=== PATIENT | female | born 1945 | race Caucasian/White ===

== ENCOUNTER 2021-04-28 15:17 | Inpatient (IN) ==
[2021-04-28] MEDS ORDERED: ceFAZolin 1,000 MG in 0.9 % Sodium Chloride 10 ML IVP ONE (15:38)
[2021-04-28] MEDS ORDERED: 0.9 % Sodium Chloride 500 ML IVC ONE (15:38)
[2021-04-28] MEDS ORDERED: Vancomycin 1,000 MG VIAL IVPB ONE (15:38)
[2021-04-28] MEDS ORDERED: *HR* HYDROmorphone (PF) 1 MG/ML SYRINGE IVP ONE (15:45)
[2021-04-28] MEDS ORDERED: D5% in Water 250 ML ONE (16:45)
[2021-04-28 16:50] LABS: Basophils % 0.7 %; Eosinophils # 0.1 K/mcL (0.0-0.6); Eosinophils % 1.4 %; Hematocrit 36.5 % (35.3-44.9); Hemoglobin 11.8 g/dL (11.5-15.4); Immature Granulocytes % 0.4 % (0-4); Lymphocytes # 1.6 K/mcL (0.6-4.6); Lymphocytes % 29.1 %; Mean Corpuscular HGB Conc 32.3 g/dL (31.6-35.5); Mean Corpuscular Hemoglobin 28.2 pg (28.0-33.3); Mean Corpuscular Volume 87.1 fL (83.0-100.0); Mean Platelet Volume 9.6 fL (9.4-12.4); Monocytes # 0.5 K/mcL (0.0-1.3); Neutrophils # 3.4 K/mcL (1.6-8.9); Platelet Count 389 K/mcL (140-400); Red Blood Count 4.19 M/mcL (3.82-4.97); Red Cell Distribution Width 13.6 % (11.5-14.5); Segmented Neutrophils % 60.4 %; White Blood Count 5.6 K/mcL (4.3-11.1)
[2021-04-28 17:02] LABS: Alanine Aminotransferase 10 Units/L (7-52); Albumin 3.7 g/dL (3.5-5.7); Albumin/Globulin Ratio 0.9 (1.1-2.2); Alkaline Phosphatase 62 Units/L (34-104); Aspartate Amino Transferase 17 Units/L (13-39); BUN/Creatinine Ratio 14 (6-26); Bilirubin,Total 0.4 mg/dL (0.3-1.0); Blood Urea Nitrogen 11 mg/dL (8-23); Calcium 9.6 mg/dL (8.6-10.3); Carbon Dioxide 23 mEq/L (23-29); Chloride 103 mEq/L (98-107); Globulin 4.3 g/dL (2.4-3.5); Glucose 105 mg/dL (70-105); Osmolality,Calculated 280 (280-300); Sodium 135 mEq/L (136-145); eGFR For African Americans > 60 (> 60); eGFR For Non-African Americans > 60 (> 60)
[2021-04-28 17:07] LABS: Bilirubin,Urine Negative (Negative); Blood,Urine Negative (Negative); Clarity,Urine Slightly Cloudy (Clear); Glucose,Urine (UA) Normal (Normal); Ketones,Urine Negative (Negative); Leukocyte Esterase,Urine Negative (Negative); Nitrite,Urine Negative (Negative); PH,Urine 5.5 pH Units (5.0-8.0); Protein,Urine Negative (Neg-Trace); Urobilinogen,Urine Normal (Normal)
[2021-04-28 17:08] LABS: Color,Urine Yellow (Yellow)
[2021-04-28] MEDS ORDERED: Ondansetron ODT 4 MG TAB.RAPDIS SL PRN (19:44)
[2021-04-28] MEDS ORDERED: Acetaminophen 325 MG TABLET PO PRN (19:44)
[2021-04-28] MEDS ORDERED: *HR* HYDROcodone/Acet 5/325 mg TABLET PO PRN (19:44)
[2021-04-28] MEDS ORDERED: Naloxone 0.4 MG/ML INJ IVP PRN (19:44)
[2021-04-28] MEDS ORDERED: RIFAMPIN 300 MG PO SCH (19:44)
[2021-04-28] MEDS ORDERED: *HR* OxyCODONE/APAP 5/325 TABLET PO SCH (20:00)
[2021-04-28] MEDS ORDERED: NON-FORMULARY MEDICATION 1 EACH EACH (Potassium Chloride [Klor-Con 10] 10 MEQ Tablet.Er) PO SCH (21:00)
[2021-04-28] MEDS: Ascorbic Acid 500 MG TABLET PO SCH (21:46)
[2021-04-28] MEDS: Sennosides 8.6 MG TABLET PO SCH (21:47)
[2021-04-28] MEDS: Gabapentin 100 MG CAPSULE PO SCH (21:47)
[2021-04-28] MEDS: *HR* OxyCODONE/APAP 5/325 TABLET PO PRN (21:47)
[2021-04-28] MEDS: Apixaban 5 MG TABLET PO SCH (21:47)
[2021-04-28] MEDS: predniSONE 5 MG TABLET PO SCH (21:49)
[2021-04-28] MEDS: methocarbamoL 500 MG TABLET PO PRN (21:52)
[2021-04-28] MEDS: Ampicillin/Sulbactam 3,000 MG in 0.9 % Sodium Chloride Mini Bag 100 ML IVPB SCH (23:26)
[2021-04-29 04:51] LABS: Basophils % 0.9 %; Eosinophils # 0.2 K/mcL (0.0-0.6); Eosinophils % 3.9 %; Hematocrit 32.6 % (35.3-44.9); Hemoglobin 10.4 g/dL (11.5-15.4); Immature Granulocytes % 0.5 % (0-4); Lymphocytes # 1.8 K/mcL (0.6-4.6); Lymphocytes % 42.2 %; Mean Corpuscular HGB Conc 31.9 g/dL (31.6-35.5); Mean Corpuscular Volume 87.6 fL (83.0-100.0); Mean Platelet Volume 9.5 fL (9.4-12.4); Monocytes # 0.5 K/mcL (0.0-1.3); Neutrophils # 1.8 K/mcL (1.6-8.9); Platelet Count 326 K/mcL (140-400); Red Blood Count 3.72 M/mcL (3.82-4.97); Red Cell Distribution Width 13.8 % (11.5-14.5); Segmented Neutrophils % 41.5 %; White Blood Count 4.4 K/mcL (4.3-11.1)
[2021-04-29 05:04] LABS: BUN/Creatinine Ratio 13 (6-26); Blood Urea Nitrogen 12 mg/dL (8-23); Calcium 8.7 mg/dL (8.6-10.3); Carbon Dioxide 25 mEq/L (23-29); Chloride 105 mEq/L (98-107); Glucose 97 mg/dL (70-105); Osmolality,Calculated 286 (280-300); Sodium 138 mEq/L (136-145); eGFR For African Americans > 60 (> 60); eGFR For Non-African Americans > 60 (> 60)
[2021-04-29] MEDS: Ampicillin/Sulbactam 3,000 MG in 0.9 % Sodium Chloride Mini Bag 100 ML IVPB SCH ×4 (05:20→23:27)
[2021-04-29] MEDS: *HR* OxyCODONE/APAP 5/325 TABLET PO PRN ×3 (06:41→20:47)
[2021-04-29] MEDS ORDERED: Vancomycin 1,500 MG/265 ML IV.SOLN IVPB SCH (09:00)
[2021-04-29] MEDS: methocarbamoL 500 MG TABLET PO PRN (09:22)
[2021-04-29] MEDS: Gabapentin 100 MG CAPSULE PO SCH ×2 (09:22→20:46)
[2021-04-29] MEDS: Multivit/Ca/Min/Fe/FA 1 TAB TABLET PO SCH (09:22)
[2021-04-29] MEDS: Apixaban 5 MG TABLET PO SCH ×2 (09:22→20:47)
[2021-04-29] MEDS: Ascorbic Acid 500 MG TABLET PO SCH ×2 (09:22→20:46)
[2021-04-29] MEDS: Furosemide 40 MG TABLET PO SCH (09:23)
[2021-04-29] MEDS: predniSONE 5 MG TABLET PO SCH (09:23)
[2021-04-29] MEDS ORDERED: Vancomycin 500 MG in 0.9 % Sodium Chloride Mini Bag 100 ML IVPB ONE (10:30)
[2021-04-29] MEDS: Acetaminophen 325 MG TABLET PO PRN (15:12)
[2021-04-29] MEDS: Sennosides 8.6 MG TABLET PO SCH (20:45)
[2021-04-30] MEDS: *HR* OxyCODONE/APAP 5/325 TABLET PO PRN ×4 (00:44→20:02)
[2021-04-30] MEDS: Ampicillin/Sulbactam 3,000 MG in 0.9 % Sodium Chloride Mini Bag 100 ML IVPB SCH ×4 (05:12→23:39)
[2021-04-30 08:20] LABS: Basophils % 0.7 %; Eosinophils # 0.2 K/mcL (0.0-0.6); Hematocrit 33.4 % (35.3-44.9); Immature Granulocytes % 0.2 % (0-4); Lymphocytes # 1.8 K/mcL (0.6-4.6); Lymphocytes % 40.9 %; Mean Corpuscular HGB Conc 32.9 g/dL (31.6-35.5); Mean Corpuscular Hemoglobin 28.7 pg (28.0-33.3); Mean Corpuscular Volume 87.2 fL (83.0-100.0); Mean Platelet Volume 9.1 fL (9.4-12.4); Monocytes # 0.5 K/mcL (0.0-1.3); Monocytes % 11.9 %; Neutrophils # 1.9 K/mcL (1.6-8.9); Platelet Count 313 K/mcL (140-400); Red Blood Count 3.83 M/mcL (3.82-4.97); Red Cell Distribution Width 13.8 % (11.5-14.5); Segmented Neutrophils % 42.3 %; White Blood Count 4.5 K/mcL (4.3-11.1)
[2021-04-30] MEDS: predniSONE 5 MG TABLET PO SCH (08:20)
[2021-04-30] MEDS: Gabapentin 100 MG CAPSULE PO SCH ×2 (08:20→20:04)
[2021-04-30] MEDS: Multivit/Ca/Min/Fe/FA 1 TAB TABLET PO SCH (08:20)
[2021-04-30] MEDS: Apixaban 5 MG TABLET PO SCH ×2 (08:20→20:03)
[2021-04-30] MEDS: Furosemide 40 MG TABLET PO SCH (08:20)
[2021-04-30] MEDS: Ascorbic Acid 500 MG TABLET PO SCH ×2 (08:21→20:03)
[2021-04-30 08:46] LABS: BUN/Creatinine Ratio 14 (6-26); Blood Urea Nitrogen 10 mg/dL (8-23); Calcium 8.7 mg/dL (8.6-10.3); Carbon Dioxide 28 mEq/L (23-29); Chloride 104 mEq/L (98-107); Glucose 96 mg/dL (70-105); Osmolality,Calculated 289 (280-300); Potassium 3.6 mEq/L (3.5-5.1); Sodium 140 mEq/L (136-145); eGFR For African Americans > 60 (> 60); eGFR For Non-African Americans > 60 (> 60)
[2021-04-30] MEDS: Vancomycin 1,500 MG/265 ML IV.SOLN IVPB SCH (09:50)
[2021-04-30] MEDS: Sennosides 8.6 MG TABLET PO SCH (20:03)
[2021-05-01] MEDS: methocarbamoL 500 MG TABLET PO PRN ×3 (01:43→21:35)
[2021-05-01] MEDS: Melatonin 3 MG TABLET PO PRN (01:43)
[2021-05-01 05:00] LABS: Basophils % 0.6 %; Eosinophils # 0.2 K/mcL (0.0-0.6); Eosinophils % 4.1 %; Hematocrit 32.5 % (35.3-44.9); Hemoglobin 10.7 g/dL (11.5-15.4); Immature Granulocytes % 0.6 % (0-4); Lymphocytes # 2.2 K/mcL (0.6-4.6); Lymphocytes % 40.9 %; Mean Corpuscular HGB Conc 32.9 g/dL (31.6-35.5); Mean Corpuscular Hemoglobin 28.5 pg (28.0-33.3); Mean Corpuscular Volume 86.7 fL (83.0-100.0); Mean Platelet Volume 9.8 fL (9.4-12.4); Monocytes # 0.5 K/mcL (0.0-1.3); Monocytes % 10.1 %; Neutrophils # 2.4 K/mcL (1.6-8.9); Platelet Count 313 K/mcL (140-400); Red Blood Count 3.75 M/mcL (3.82-4.97); Red Cell Distribution Width 13.9 % (11.5-14.5); Segmented Neutrophils % 43.7 %; White Blood Count 5.4 K/mcL (4.3-11.1)
[2021-05-01 05:11] LABS: BUN/Creatinine Ratio 21 (6-26); Blood Urea Nitrogen 18 mg/dL (8-23); Calcium 8.6 mg/dL (8.6-10.3); Carbon Dioxide 29 mEq/L (23-29); Chloride 100 mEq/L (98-107); Glucose 98 mg/dL (70-105); Osmolality,Calculated 286 (280-300); Potassium 3.6 mEq/L (3.5-5.1); Sodium 137 mEq/L (136-145); eGFR For African Americans > 60 (> 60); eGFR For Non-African Americans > 60 (> 60)
[2021-05-01] MEDS: Ampicillin/Sulbactam 3,000 MG in 0.9 % Sodium Chloride Mini Bag 100 ML IVPB SCH ×4 (05:59→22:58)
[2021-05-01] MEDS: *HR* OxyCODONE/APAP 5/325 TABLET PO PRN ×3 (06:48→21:35)
[2021-05-01] MEDS: Multivit/Ca/Min/Fe/FA 1 TAB TABLET PO SCH (08:53)
[2021-05-01] MEDS: Ascorbic Acid 500 MG TABLET PO SCH ×2 (08:53→19:37)
[2021-05-01] MEDS: Furosemide 40 MG TABLET PO SCH (08:53)
[2021-05-01] MEDS: Apixaban 5 MG TABLET PO SCH ×2 (08:54→19:37)
[2021-05-01] MEDS: predniSONE 5 MG TABLET PO SCH (08:54)
[2021-05-01] MEDS: Gabapentin 100 MG CAPSULE PO SCH ×2 (08:54→19:37)
[2021-05-01] MEDS: Vancomycin 1,500 MG/265 ML IV.SOLN IVPB SCH (08:54)
[2021-05-01] MEDS: Acetaminophen 325 MG TABLET PO PRN (19:37)
[2021-05-01] MEDS: Sennosides 8.6 MG TABLET PO SCH (19:37)
[2021-05-02 04:42] LABS: Basophils % 0.8 %; Eosinophils # 0.2 K/mcL (0.0-0.6); Eosinophils % 3.5 %; Hematocrit 33.8 % (35.3-44.9); Immature Granulocytes % 0.4 % (0-4); Lymphocytes # 2.1 K/mcL (0.6-4.6); Lymphocytes % 40.3 %; Mean Corpuscular HGB Conc 32.5 g/dL (31.6-35.5); Mean Corpuscular Hemoglobin 28.2 pg (28.0-33.3); Mean Corpuscular Volume 86.7 fL (83.0-100.0); Mean Platelet Volume 9.5 fL (9.4-12.4); Monocytes # 0.5 K/mcL (0.0-1.3); Monocytes % 9.2 %; Neutrophils # 2.4 K/mcL (1.6-8.9); Platelet Count 297 K/mcL (140-400); Red Cell Distribution Width 14.1 % (11.5-14.5); Segmented Neutrophils % 45.8 %; White Blood Count 5.2 K/mcL (4.3-11.1)
[2021-05-02 04:55] LABS: BUN/Creatinine Ratio 22 (6-26); Blood Urea Nitrogen 17 mg/dL (8-23); Calcium 9.1 mg/dL (8.6-10.3); Carbon Dioxide 29 mEq/L (23-29); Chloride 102 mEq/L (98-107); Glucose 95 mg/dL (70-105); Osmolality,Calculated 289 (280-300); Potassium 3.5 mEq/L (3.5-5.1); Sodium 139 mEq/L (136-145); eGFR For African Americans > 60 (> 60); eGFR For Non-African Americans > 60 (> 60)
[2021-05-02] MEDS: Ampicillin/Sulbactam 3,000 MG in 0.9 % Sodium Chloride Mini Bag 100 ML IVPB SCH ×3 (05:27→17:26)
[2021-05-02] MEDS: Apixaban 5 MG TABLET PO SCH ×2 (08:09→19:49)
[2021-05-02] MEDS: *HR* OxyCODONE/APAP 5/325 TABLET PO PRN ×2 (08:09→18:13)
[2021-05-02] MEDS: Vancomycin 1,500 MG/265 ML IV.SOLN IVPB SCH (08:10)
[2021-05-02] MEDS: Ascorbic Acid 500 MG TABLET PO SCH ×2 (08:10→19:49)
[2021-05-02] MEDS: Gabapentin 100 MG CAPSULE PO SCH ×2 (08:10→19:49)
[2021-05-02] MEDS: predniSONE 5 MG TABLET PO SCH (08:10)
[2021-05-02] MEDS: Multivit/Ca/Min/Fe/FA 1 TAB TABLET PO SCH (08:10)
[2021-05-02] MEDS: Furosemide 40 MG TABLET PO SCH (08:10)
[2021-05-02] MEDS: Acetaminophen 325 MG TABLET PO PRN ×2 (10:38→19:50)
[2021-05-02] MEDS: methocarbamoL 500 MG TABLET PO PRN (19:49)
[2021-05-02] MEDS: Sennosides 8.6 MG TABLET PO SCH (19:49)
[2021-05-03] MEDS: Ampicillin/Sulbactam 3,000 MG in 0.9 % Sodium Chloride Mini Bag 100 ML IVPB SCH ×2 (00:11→05:07)
[2021-05-03] MEDS: *HR* OxyCODONE/APAP 5/325 TABLET PO PRN ×3 (00:56→21:11)
[2021-05-03 08:20] LABS: Basophils % 0.7 %; Eosinophils # 0.2 K/mcL (0.0-0.6); Eosinophils % 3.3 %; Hematocrit 34.1 % (35.3-44.9); Hemoglobin 11.2 g/dL (11.5-15.4); Immature Granulocytes % 0.4 % (0-4); Lymphocytes # 1.8 K/mcL (0.6-4.6); Lymphocytes % 33.5 %; Mean Corpuscular HGB Conc 32.8 g/dL (31.6-35.5); Mean Corpuscular Hemoglobin 28.9 pg (28.0-33.3); Mean Corpuscular Volume 87.9 fL (83.0-100.0); Mean Platelet Volume 9.2 fL (9.4-12.4); Monocytes # 0.6 K/mcL (0.0-1.3); Monocytes % 10.8 %; Neutrophils # 2.8 K/mcL (1.6-8.9); Platelet Count 274 K/mcL (140-400); Red Blood Count 3.88 M/mcL (3.82-4.97); Red Cell Distribution Width 14.4 % (11.5-14.5); Segmented Neutrophils % 51.3 %; White Blood Count 5.4 K/mcL (4.3-11.1)
[2021-05-03] MEDS: Multivit/Ca/Min/Fe/FA 1 TAB TABLET PO SCH (08:20)
[2021-05-03] MEDS: Apixaban 5 MG TABLET PO SCH ×2 (08:20→21:11)
[2021-05-03] MEDS: Gabapentin 100 MG CAPSULE PO SCH ×2 (08:20→21:11)
[2021-05-03] MEDS: Furosemide 40 MG TABLET PO SCH (08:20)
[2021-05-03] MEDS: predniSONE 5 MG TABLET PO SCH (08:20)
[2021-05-03] MEDS: Ascorbic Acid 500 MG TABLET PO SCH ×2 (08:21→21:11)
[2021-05-03] MEDS: Doxycycline 100 MG CAPSULE PO SCH ×2 (08:27→21:11)
[2021-05-03 08:32] LABS: BUN/Creatinine Ratio 18 (6-26); Blood Urea Nitrogen 15 mg/dL (8-23); Carbon Dioxide 30 mEq/L (23-29); Chloride 101 mEq/L (98-107); Glucose 98 mg/dL (70-105); Osmolality,Calculated 287 (280-300); Potassium 3.7 mEq/L (3.5-5.1); Sodium 138 mEq/L (136-145); eGFR For African Americans > 60 (> 60); eGFR For Non-African Americans > 60 (> 60)
[2021-05-03] MEDS ORDERED: Pantoprazole 40 MG VIAL IVP ONE (17:21)
[2021-05-03] MEDS: Acetaminophen 325 MG TABLET PO PRN (18:13)
[2021-05-03] MEDS: methocarbamoL 500 MG TABLET PO PRN (18:13)
[2021-05-03] MEDS ORDERED: Isovue-370 500 ML BOTTLE IVP ONE (18:31)
[2021-05-03] MEDS: Sennosides 8.6 MG TABLET PO SCH (21:10)
[2021-05-03] MEDS: Melatonin 3 MG TABLET PO PRN (21:11)
[2021-05-04] MEDS: methocarbamoL 500 MG TABLET PO PRN (00:37)
[2021-05-04] MEDS: Acetaminophen 325 MG TABLET PO PRN (00:37)
[2021-05-04 06:12] LABS: Basophils # 0.1 K/mcL (0.0-0.2); Basophils % 0.9 %; Eosinophils # 0.2 K/mcL (0.0-0.6); Eosinophils % 3.7 %; Hematocrit 33.5 % (35.3-44.9); Hemoglobin 10.7 g/dL (11.5-15.4); Immature Granulocytes % 0.4 % (0-4); Lymphocytes # 2.1 K/mcL (0.6-4.6); Lymphocytes % 39.3 %; Mean Corpuscular HGB Conc 31.9 g/dL (31.6-35.5); Mean Corpuscular Hemoglobin 28.2 pg (28.0-33.3); Mean Corpuscular Volume 88.2 fL (83.0-100.0); Mean Platelet Volume 9.9 fL (9.4-12.4); Monocytes # 0.6 K/mcL (0.0-1.3); Monocytes % 11.6 %; Neutrophils # 2.4 K/mcL (1.6-8.9); Platelet Count 257 K/mcL (140-400); Red Cell Distribution Width 14.2 % (11.5-14.5); Segmented Neutrophils % 44.1 %; White Blood Count 5.4 K/mcL (4.3-11.1)
[2021-05-04 06:28] LABS: BUN/Creatinine Ratio 20 (6-26); Blood Urea Nitrogen 17 mg/dL (8-23); Carbon Dioxide 30 mEq/L (23-29); Chloride 100 mEq/L (98-107); Glucose 92 mg/dL (70-105); Osmolality,Calculated 283 (280-300); Potassium 3.6 mEq/L (3.5-5.1); Sodium 136 mEq/L (136-145); eGFR For African Americans > 60 (> 60); eGFR For Non-African Americans > 60 (> 60)
[2021-05-04 08:36] VITALS: BP 123/82; PULSE 61; RESP 14; TEMP 98.3; O2SAT 98
[2021-05-04] MEDS: Apixaban 5 MG TABLET PO SCH (09:27)
[2021-05-04] MEDS: predniSONE 5 MG TABLET PO SCH (09:27)
[2021-05-04] MEDS: Furosemide 40 MG TABLET PO SCH (09:27)
[2021-05-04] MEDS: Gabapentin 100 MG CAPSULE PO SCH (09:27)
[2021-05-04] MEDS: Doxycycline 100 MG CAPSULE PO SCH (09:27)
[2021-05-04] MEDS: Multivit/Ca/Min/Fe/FA 1 TAB TABLET PO SCH (09:28)
[2021-05-04] MEDS: Ascorbic Acid 500 MG TABLET PO SCH (09:28)
== END 2021-05-04 09:55 | disposition home health service (06) | DRG 593 ==
LOC: EMEROOGRE 15:17 → INPGRE 15:17
PROVIDERS: ADMIT Family Medicine; ATTEND Family Medicine